=== PATIENT | female | born 1950 | race Caucasian/White ===

== ENCOUNTER 2024-05-17 14:20 | Emergency (ER) | payer OTHER ==
[~2024-05-17] VITALS: Ht 157.5 cm; Wt 78.0 kg
[2024-05-17 14:29] VITALS: O2SAT 80
[2024-05-17] MEDS ORDERED: AMOX1TAB16 MT (14:53)
[2024-05-17] MEDS ORDERED: IBUP-2029 MT (14:53)
[2024-05-17] MEDS: KETOROLAC 30MG/ML VIAL IM ONE (15:16)
[2024-05-17 15:18] VITALS: BP 142/87; PULSE 95; RESP 16; TEMP 36.55848; O2SAT 80
== END 2024-05-17 15:19 | disposition home or self-care (01) ==
LOC: ER 14:54
DX: K04.7 Periapical abscess without sinus (principal); I10 Essential (primary) hypertension
CPT/HCPCS: 99283; 96372; J1885